=== PATIENT | female | born 1975 | race Two or more races ===

== ENCOUNTER 2025-04-22 08:00 | Day surgery (SDC) | payer OTHER ==
[2025-04-16 14:06] VITALS: BP 138/79
[~2025-04-22] VITALS: Ht 160 cm; Wt 85.7 kg
[2025-04-22] MEDS ORDERED: CEFAZOLIN SODIUM 1,000 MG VIAL ONE (08:27)
[2025-04-22] MEDS ORDERED: MORPHINE SULFATE 4 MG/ML VIAL IV ONE (11:50)
== END 2025-04-22 13:10 | disposition home or self-care (01) ==
LOC: CIR.AMB 08:00
PROVIDERS: ATTEND Surgery Surgery of the Hand
DX: M67.843 Other specified disorders of tendon, right hand (principal); M65.841 Other synovitis and tenosynovitis, right hand